=== PATIENT | male | born 1930 | race Two or more races ===

== ENCOUNTER 2018-12-25 20:50 | Emergency (ER) | payer OTHER ==
--- NOTE | 2018-12-25 21:37 | PDOC ---
History of Present Illness - General Stated Complaint: FALL Time Seen by Provider: 12/25/18 21:13 History Source: Patient Exam Limitations: No Limitations - History of Present Illness Initial Comments: HPI: 88 y/o male BIBEMS to [facility] ER complaining of headache, soft tissue swelling, and blurry vision after falling in the parking lot of [employer]. States he was trying to load his groceries into the car when the grocery cart rolled away. The pt reached out and attempted to catch it. Pt fell backwards onto his head. Denies loss of consciousness, anterograde/retrograde amnesia, or nausea/ vomiting. Experienced blurry vision that resolved after a few minutes. Was helped to feet by bystander. At time of interview, pt states he just feels a little dizzy and has a headache. Then further endorses experiencing heartburn without burning sensation in the throat or metallic taste in mouth. Pain is localized to lower left anterior chest wall without radiation. Pt states he is on blood thinning medication but unable to recall name. 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 Past History - Past Medical History Allergies/Adverse Reactions: Allergies Allergy/AdvReac Type Severity Reaction Status Date / Time No Known Allergies Allergy Verified 12/25/18 21:42 Home Medications: Ambulatory Orders Sertraline HCl 50 mg PO DAILY 04/17/16 Aspirin Coated [Ecotrin -] 81 mg PO DAILY #30 tablet.ec 04/24/16 Atorvastatin Ca [Lipitor] 40 mg PO HS #30 tablet 04/24/16 Carvedilol [Coreg -] 25 mg PO BID #60 tablet 04/24/16 Furosemide [Lasix -] 20 mg PO DAILY #14 tablet 04/24/16 Losartan Potassium [Cozaar -] 100 mg PO DAILY #15 tablet 04/24/16 Nifedipine ER [Procardia XL -] 60 mg PO BID #60 tab.er.24 04/24/16 Potassium Chloride [K-Dur -] 40 meq PO DAILY #14 tablet.er 04/24/16 Tamsulosin HCl [Flomax -] 0.8 mg PO DAILY@0830 #30 cap.er.24h 04/24/16 Anemia: No Asthma: No Cancer: No Cardiac Disorders: No CVA: No COPD: No CHF: No Dementia: No Diabetes: No GI Disorders: No Disorders: No HTN: Yes Hypercholesterolemia: No Liver Disease: No Seizures: No Thyroid Disease: No - Surgical History Abdominal Surgery: Yes (umbilical hernia repair) Appendectomy: No Cardiac Surgery: No Cholecystectomy: No Lung Surgery: No Neurologic Surgery: No Orthopedic Surgery: Yes (torn ligament on left knee repair) - Suicide/Smoking/Psychosocial Hx Smoking History: Never smoked Have you smoked in the past 12 months: No Hx Alcohol Use: No Drug/Substance Use Hx: No Substance Use Type: Alcohol Hx Substance Use Treatment: No Review of Systems - Review of Systems Able to Perform ROS?: Yes Comments:: In addition to that documented in the HPI above, the additional ROS was obtained : Constitutional: Denies fevers or chills Head: Per HPI ENMT: Denies sore throat CV: Denies chest pain Resp: Denies SOB GI: Denies vomiting or diarrhea : Denies painful urination MSK: Denies recent trauma Skin: Denies new rashes Neuro: Denies new numbness or tingling or weakness Endocrine: Denies polyuria Heme: Denies bleeding or bruising *Physical Exam - Vital Signs Vital Signs (72 hours) 12/25/18 21:00 Temperature 97.4 F L Pulse Rate 68 Respiratory 20 Rate Blood Pressure 174/90 H O2 Sat by Pulse 100 Oximetry (%) - Physical Exam Comments: Constitutional: Well-developed, well-nourished elderly adult male in no acute distress or obvious discomfort. Found sitting upright on edge of hospital bed. Alert and oriented x4. Answered all questions appropriately and completely. Speech was non-labored, non-pressured. Head: Normocephalic. Hematoma to posterior midline in occiput. Small overlying skin abrasion. Eyes: Pupils 3mm and PERRL bilaterally. EOMI. Sclerae white. Conjunctiva moist and not injected. Ears: Hearing grossly intact. No discharge. Nose: No nasal discharge. Throat: Oral cavity and pharynx normal. No inflammation, swelling, exudate, or lesions. Neck: Supple, trachea is midline. No c-spine tenderness. Able to rotate neck laterally to L and R without difficulty or pain. Cardiovascular / Chest: Regular rate and regular rhythm. No murmur, rubs, clicks, or gallops. Peripheral pulses: radial pulses full. No anterior chest wall tenderness. Respiratory: Breathing unlabored. Equal chest rise and fall. Clear to auscultation bilaterally. No stridor, no wheezing, no rhonchi. Gastrointestinal: abdomen is soft, non-tender, non-distended. Neuro: Alert and oriented. Moving all four extremities spontaneously. Sensation to all four extremities intact. Upper and lower extremities: proximal and distal strength 5/5. Information Systems Professor strength 5/5 - equal and symmetric. Plantar flexion and dorsiflexion 5/5. Skin: Warm, dry, and intact. No bruising, rashes, or other lesions. No palpable nodules. Psych: Affect: appropriate. Mood: normal. ED Treatment Course - LABORATORY CBC & Chemistry Diagram: 12/25/18 22:13 12/25/18 22:13 - ADDITIONAL ORDERS Additional order review: 12/25/18 12/25/18 22:13 22:13 PT with INR 11.00 INR 0.93 PTT (Actin FS) 35.4 Sodium 140 Potassium 3.5 Chloride 106 Carbon Dioxide 26 Anion Gap 8 BUN 28 H Creatinine 1.6 H Creat Clearance w eGFR 41.00 Random Glucose 108 H Calcium 9.0 Total Bilirubin 0.5 AST 17 ALT 28 Alkaline Phosphatase 119 H Troponin I 0.02 Total Protein 8.3 H Albumin 4.1 12/25/18 22:13 RBC 4.80 MCV 85.7 MCHC 34.6 RDW 15.8 MPV 8.2 Neutrophils % 72.0 Lymphocytes % 18.7 Monocytes % 6.7 Eosinophils % 2.1 Basophils % 0.5 - RADIOLOGY Radiology Studies Ordered: Category Date Time Status CERVICAL SPINE CT W/O CONTR [CT] Stat CT Scan 12/25/18 21:[address] WITHOUT CONTRAST [CT] Stat CT Scan 12/25/18 21:54 Ordered CHEST X-RAY PORTABLE* [RAD] Stat Radiology 12/25/18 21:54 Taken Medical Decision Making - Medical Decision Making 12/25/18 23:56 Pt signed out to resident Dr. Dumont after he was verbally appraised of the pts HPI, current ED course, and plan of management. Will follow up on pending head CT and repeat three hour troponin.
[2018-12-25 21:44] VITALS: BMI 24.4
[2018-12-25] MEDS ORDERED: LIDOCAINE VISCOUS 2% ORAL/TOP 100 ML BOTTLE MM ONE (21:55)
[2018-12-25] MEDS ORDERED: MAG HYDROX/AL HYDROX/SIMETH 30 ML UNIT-DOSE CUP PO ONE (21:55)
[2018-12-25] MEDS ORDERED: PANTOPRAZOLE SODIUM 40 MG VIAL IVPUSH ONE (21:56)
[2018-12-25] MEDS ORDERED: MAG HYDROX/AL HYDROX/SIMETH 30 ML UNIT-DOSE CUP ONE (22:05)
[2018-12-25] MEDS ORDERED: LIDOCAINE VISCOUS 2% ORAL/TOP 20 ML UNIT-DOSE CUP ONE (22:05)
[2018-12-25 22:36] LABS: BASO % 0.5 % (0-2.0); EOS % 2.1 % (0-4.5); HEMATOCRIT 41.2 % (35.4-49); HEMOGLOBIN 14.2 GM/dL (11.7-16.9); LYMPH % 18.7 % (8-40); MCH 29.6 pg (25.7-33.7); MCHC 34.6 g/dl (32.0-35.9); MEAN CELL VOLUME 85.7 fl (80-96); MEAN PLT VOLUME 8.2 fl (7.5-11.1); MONO % 6.7 % (3.8-10.2); PLATELET COUNT 198 K/MM3 (134-434); RDW 15.8 % (11.9-15.9); WHITE BLOOD COUNT 6.8 K/mm3 (4.0-10.0)
[2018-12-25] MEDS ORDERED: PANTOPRAZOLE SODIUM 40 MG/100 ML BAG IVPB ONE (22:54)
[2018-12-25 23:02] LABS: ALBUMIN 4.1 g/dl (3.4-5.0); ALK PHOS 119 U/L (45-117); ANION GAP 8 MMOL/L (8-16); BILIRUBIN,TOTAL 0.5 mg/dL (0.2-1); BLOOD UREA NITROGEN 28 mg/dL (7-18); CHLORIDE 106 mmol/L (98-107); CO2 26 mmol/L (21-32); CREATININE 1.6 mg/dL (0.55-1.3); GLUCOSE,RANDOM 108 mg/dL (74-106); POTASSIUM 3.5 mmol/L (3.5-5.1); SGOT/AST 17 U/L (15-37); SGPT/ALT 28 U/L (13-61); SODIUM 140 mmol/L (136-145); TOT PROT 8.3 g/dl (6.4-8.2)
[2018-12-25 23:13] LABS: INR 0.93 (0.83-1.09)
[2018-12-25 23:16] LABS: ACTIVATED PTT 35.4 SECONDS (25.2-36.5)
--- NOTE | 2018-12-26 01:28 | PDOC ---
*Physical Exam - Vital Signs Last Vital Signs Temp Pulse Resp BP Pulse Ox 97.4 F L 68 20 174/90 H 100 12/25/18 21:00 12/25/18 21:00 12/25/18 21:00 12/25/18 21:00 12/25/18 21:00 <Daquan Tolliver - Last Filed: 12/26/18 03:29> - Vital Signs Last Vital Signs Temp Pulse Resp BP Pulse Ox 97.4 F L 68 20 174/90 H 100 12/25/18 21:00 12/25/18 21:00 12/25/18 21:00 12/25/18 21:00 12/25/18 21:00 - Physical Exam Comments: GENERAL: Awake, alert, and oriented to person/place/time, in no acute distress HEAD: Occipital hematoma w/ mild ecchymosis; no laceration or wound EYES: PERRLA, EOMI, sclera anicteric, conjunctiva clear LUNGS: Breathing comfortably on room air w/ symmetric chest rise HEART: Regular rate and rhythm EXTREMITIES: Normal inspection, Normal range of motion, no edema. No clubbing or cyanosis NEUROLOGICAL: Cranial nerves II through XII grossly intact. Normal speech, normal gait, no focal sensorimotor deficits 12/26/18 06:26 <Trevor Dumont - Last Filed: 12/26/18 06:29> ED Treatment Course - LABORATORY CBC & Chemistry Diagram: 12/25/18 22:13 12/25/18 22:13 - ADDITIONAL ORDERS Additional order review: Laboratory Results 12/26/18 12/25/18 12/25/18 01:24 22:13 22:13 PT with INR 11.00 INR 0.93 PTT (Actin FS) 35.4 Sodium 140 Potassium 3.5 Chloride 106 Carbon Dioxide 26 Anion Gap 8 BUN 28 H Creatinine 1.6 H Creat Clearance w eGFR 41.00 Random Glucose 108 H Calcium 9.0 Total Bilirubin 0.5 AST 17 ALT 28 Alkaline Phosphatase 119 H Troponin I 0.02 0.02 Total Protein 8.3 H Albumin 4.1 12/25/18 22:13 RBC 4.80 MCV 85.7 MCHC 34.6 RDW 15.8 MPV 8.2 Neutrophils % 72.0 Lymphocytes % 18.7 Monocytes % 6.7 Eosinophils % 2.1 Basophils % 0.5 - Medications Given in the ED: ED Medications Discontinued Medications Generic Name Dose Route Start Last Admin Trade Name Genaroq PRN Reason Stop Dose Admin Al Hydroxide/Mg Hydroxide 30 ml 12/25/18 21:55 12/25/18 22:15 Mylanta Oral Suspension - PO 12/25/18 21:56 30 ml ONCE ONE Administration Lidocaine HCl 15 ml 12/25/18 21:55 12/25/18 22:15 Xylocaine 2% Viscous MM 12/25/18 21:56 15 ml ONCE ONE Administration Pantoprazole Sodium 40 mg 12/25/18 21:56 12/25/18 22:55 Protonix Iv IVPUSH 12/25/18 21:57 40 mg ONCE ONE Administration <Ou,Daquan - Last Filed: 12/26/18 03:29> - LABORATORY CBC & Chemistry Diagram: 12/25/18 22:13 12/25/18 22:13 - ADDITIONAL ORDERS Additional order review: Laboratory Results 12/25/18 12/25/18 22:13 22:13 PT with INR 11.00 INR 0.93 PTT (Actin FS) 35.4 Sodium 140 Potassium 3.5 Chloride 106 Carbon Dioxide 26 Anion Gap 8 BUN 28 H Creatinine 1.6 H Creat Clearance w eGFR 41.00 Random Glucose 108 H Calcium 9.0 Total Bilirubin 0.5 AST 17 ALT 28 Alkaline Phosphatase 119 H Troponin I 0.02 Total Protein 8.3 H Albumin 4.1 12/25/18 22:13 RBC 4.80 MCV 85.7 MCHC 34.6 RDW 15.8 MPV 8.2 Neutrophils % 72.0 Lymphocytes % 18.7 Monocytes % 6.7 Eosinophils % 2.1 Basophils % 0.5 - Medications Given in the ED: ED Medications Discontinued Medications Generic Name Dose Route Start Last Admin Trade Name Genaroq PRN Reason Stop Dose Admin Al Hydroxide/Mg Hydroxide 30 ml 12/25/18 21:55 12/25/18 22:15 Mylanta Oral Suspension - PO 12/25/18 21:56 30 ml ONCE ONE Administration Lidocaine HCl 15 ml 12/25/18 21:55 12/25/18 22:15 Xylocaine 2% Viscous MM 12/25/18 21:56 15 ml ONCE ONE Administration Pantoprazole Sodium 40 mg 12/25/18 21:56 12/25/18 22:55 Protonix Iv IVPUSH 12/25/18 21:57 40 mg ONCE ONE Administration <Trevor Dumont - Last Filed: 12/26/18 06:29> Medical Decision Making - Medical Decision Making The pt is a 88M who presents for evaluation s/p mechanical fall from standing w / an occipital hematoma. Pt received from Dr. Garcia. CT read pending 12/26/18 01:28 Trop neg x2 Dispo pending CT read 12/26/18 02:03 CT w/o acute pathology Pt reports no symptoms Pt w/ improved BP, 160s/80s Plan for D/C w/ PCP f/u Discharge instructions and return precautions given Pt in agreement and verbalized understanding Dispo: home 12/26/18 06:27 <Trevor Dumont - Last Filed: 12/26/18 06:29> *DC/Admit/Observation/Transfer - Attestations Physician Attestion: 12/26/18 03:30 I, Dr. Daquan Tolliver MD, attest that this document has been prepared under my direction and personally reviewed by me in its entirety. I further attest, that it accurately reflects all work, treatment, procedures and medical decision -making performed by me. <Daquan Tolliver - Last Filed: 12/26/18 03:29> - Discharge Dispostion Decision to Admit order: No <Trevor Dumont - Last Filed: 12/26/18 06:29> Diagnosis at time of Disposition: Fall Qualifiers: Encounter type: initial encounter Qualified Code(s): W19.XXXA - Unspecified fall, initial encounter - Discharge Dispostion Disposition: HOME Condition at time of disposition: Stable - Patient Instructions Printed Discharge Instructions: How to Prevent Falls Additional Instructions: Please follow up with your primary doctor within [address] scans were normal today. However, if you experience any worsening pain, weakness, numbness, or any other concerning symptoms, return to the ER immediately. You also need to have your blood pressure re-checked by your primary doctor, as it was slightly elevated today. Uncontrolled blood pressure can eventually lead to kidney disease, heart disease, other serious illness, disability, or even .
--- NOTE | 2018-12-26 01:34 | PDOC ---
Attending Attestation - Resident Resident Name: Luis Garcia - ED Attending Attestation I have performed the following: I have examined & evaluated the patient, The case was reviewed & discussed with the resident, I agree w/resident's findings & plan, Exceptions are as noted - HPI HPI: 12/26/18 01:32 The patient is a 88 year old male, with a significant past medical history of HTN, HLD, and CVA x3 (last one 7 months ago) of who presents to the emergency department via EMS with and injury s/p fall. The patient was taking his groceries out the cart and placing them in the trunk of his car when he fell backwards and hit his head. Denies LOC. Pt was able to get up on his own afterwards. Had some pain in his head initially, but that has resolved. Pt now denies any symptoms other than "heartburn", which he states he has frequently. Describes a burning in his epigastric region. The patient denies fever, chills, nausea, vomit, diarrhea or constipation. The patient denies dysuria, frequency, urgency or hematuria. Allergies: NKDA Past surgical history:umbilical hernia repair, torn ligament on left knee repair ) Social history: No tobacco use. No alcohol use. - Physicial Exam PE: 12/26/18 01:33 GENERAL: Awake, alert, and fully oriented, in no acute distress. HEAD: +abrasion to occiput, no lac EYES: PERRLA, EOMI, sclera anicteric, conjunctiva clear ENT: Auricles normal inspection, hearing grossly normal, nares patent, oropharynx clear without exudates. Moist mucosa NECK: Nontender, no stepoffs, Normal ROM, supple, no lymphadenopathy, JVD, or masses LUNGS: Breath sounds equal, clear to auscultation bilaterally. No wheezes, and no crackles HEART: Regular rate and rhythm, normal S1 and S2, no murmurs, rubs or gallops ABDOMEN: Soft, nontender, normoactive bowel sounds. No guarding, no rebound. No masses EXTREMITIES: Normal range of motion, no edema. No clubbing or cyanosis. No cords, erythema, or tenderness NEUROLOGICAL: Cranial nerves II through XII intact. 5/5 strength and sensation in all extremities, Normal speech, normal gait, normal cerebellar function SKIN: Warm, Dry, normal turgor, no rashes or lesions noted. - Medical Decision Making 12/26/18 01:34 88 M with head injury after mechanical fall. Also complaining of epigastric burning, likely 2/2 heartburn. Will r/o ACS. - Labs, tropx2 - CT head 12/26/18 02:48 Trop negative x2 12/26/18 03:29 CTs negative Pt noted to be hypertensive but admits to not taking his meds due to the fall today. Pt is well appearing, with normal vitals. Clinically stable for DC at this time. I discussed the physical exam findings, ancillary test results and final diagnoses with the patient. I answered all of the patient's questions. The patient was satisfied with the care received and felt comfortable with the discharge plan and treatment plan. The patient agrees to follow up with the primary care physician within 24-72 hours.
[2018-12-26 03:46] VITALS: BP 175/97; PULSE 72; TEMP 98.3
--- NOTE | 2018-12-26 16:35 | EKG ---
Test Reason : Blood Pressure : / mmHG Vent. Rate : 068 BPM Atrial Rate : 068 BPM P-R Int : 166 ms QRS Dur : 144 ms QT Int : 470 ms P-R-T Axes : -08 005 -13 degrees QTc Int : 499 ms POOR DATA QUALITY, INTERPRETATION MAY BE ADVERSELY AFFECTED NORMAL SINUS RHYTHM RIGHT BUNDLE BRANCH BLOCK VOLTAGE CRITERIA FOR LEFT VENTRICULAR HYPERTROPHY ABNORMAL ECG WHEN COMPARED WITH ECG OF 09-NOV-2003 16:45, RIGHT BUNDLE BRANCH BLOCK IS NOW PRESENT Confirmed by ANITA ESCOBAR MD ([id number]) on 12/26/2018 4:35:08 PM Referred By: Confirmed By:ANITA ESCOBAR MD
== END 2018-12-26 04:20 | disposition home or self-care (01) ==
LOC: JER 20:50
PROC: 3E033GC Introduction of Other Therapeutic Substance into Peripheral Vein, Percutaneous Approach (ICD-10-PCS; principal; 2018-12-25)
DX: S00.91XA Abrasion of unspecified part of head, initial encounter (principal); W18.39XA Other fall on same level, initial encounter; Y93.89 Activity, other specified; Y92.481 Parking lot as the place of occurrence of the external cause; I10 Essential (primary) hypertension; E78.5 Hyperlipidemia, unspecified; Z86.73 Personal history of transient ischemic attack (TIA), and cerebral infarction without residual deficits
CPT/HCPCS: 36415; 70450-TC; 71045-TC-FY; 72125-TC; 80053; 84484; 85025; 85610; 85730; 93005; 93010; 96374; 99283-25